=== PATIENT | female | born 1985 | race Caucasian/White ===

== ENCOUNTER 2022-10-19 20:35 | Emergency (ER) | payer MEDICARE, MEDICAID, SELFPAY ==
[2022-10-19 20:41] VITALS: BP 131/65; PULSE 83; RESP 18; TEMP 36.9; O2SAT 97; BMI 31.2
[2022-10-19 21:33] LABS: INR 1.5 (0.9-1.3); Prothrombin Time 16.8 SECONDS (10.1-12.7)
[2022-10-19 21:35] LABS: Ammonia (NH3) 33 umol/L (9-30); PTT Partial Thromboplastin Tim 23 SECONDS (26-36)
[2022-10-19 21:38] LABS: Alanine Aminotransferase 71 IU/L (<35); Albumin 2.8 g/dL (3.5-5.0); Albumin Globulin Ratio 0.8 (1.0-2.8); Alkaline Phosphatase 450 U/L (38-126); Aspartate Aminotransferase 127 IU/L (14-36); BUN Creatinine Ratio 16.7 (6-22); Bilirubin Total 3.9 mg/dL (0.2-1.3); Blood Urea Nitrogen 7 mg/dL (7-17); Calcium 7.5 mg/dL (8.4-10.2); Carbon Dioxide 26 mmol/L (22-32); Chloride 104 mmol/L (98-107); Estimated Glomerular Filt Rate > 60 mL/min (>60); Globulin 3.7 g/dL (1.7-4.1); Glucose 92 mg/dL (70-100); HEMOLYSIS 38 (0-50); Lipase 61 U/L (23-300); Potassium 3.3 mmol/L (3.4-5.1); Sodium 134 mmol/L (137-145); Total Protein 6.5 g/dL (6.3-8.2)
[2022-10-19 21:41] LABS: Basophils Absolute Auto 0 /uL (0-100); Basophils Percent Auto 1.2 % (0-2); Eosinophils Absolute Auto 100 /uL (0-450); Eosinophils Percent Auto 2.2 % (2-4); Hematocrit 30.3 % (36-46); Hemoglobin 10.4 g/dL (12.0-16.0); Lymphocytes Absolute Auto 400 /uL (1100-4500); Lymphocytes Percent Auto 10.8 % (25-40); Mean Corpuscular HGB Conc 34.4 % (30-36); Mean Corpuscular Hemoglobin 29.6 PG (26-34); Mean Corpuscular Volume 86.1 fL (80-100); Monocytes Absolute Auto 300 /uL (0-900); Neutrophils Absolute Auto 3100 /uL (1500-7000); Neutrophils Percent Auto 78.8 % (50-75); Red Blood Cell Count 3.52 X10^6/uL (4.0-5.2); Red Cell Distribution Width 17.5 % (11.6-14.8)
[2022-10-19 21:42] LABS: Add Manual Diff / Slide Review SLIDE REVIEW
--- NOTE | 2022-10-19 21:58 | DI.RAD.S_ITS ---
PROCEDURE: XR CHEST 1V INDICATIONS: sob, ascites. TECHNIQUE: One view of the chest was acquired. COMPARISON: None. FINDINGS: Surgical changes and devices: None. Lungs and pleura: Submaximal inspiration with vascular crowding. No gross infiltrates. Mediastinum: Mediastinal contours appear normal. Heart size is normal. Bones and chest wall: No suspicious bony lesions. Overlying soft tissues appear unremarkable. IMPRESSION: Submaximal inspiration with vascular crowding. No gross infiltrates. Dictated by: Carlos Hall M.D. on 10/19/2022 at 22:17 Approved by: Carlos Hall M.D. on 10/19/2022 at 22:18
[2022-10-19 22:05] LABS: Platelet Count 42 X10^3/uL (150-400)
[2022-10-19 22:06] LABS: Platelet Estimate Decreased on smear; RBC Morphology Normal Morphology
--- NOTE | 2022-10-19 22:56 | ED_ITS ---
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 Patient presents with complaint of significant ascites. Patient describes quite a bit of discomfort and swelling that is even causing an inguinal hernia to be swollen. Patient states that her last paracentesis was around the 28 of September. Patient states belly has been come increasing distended over time. She denies fevers or chills. She is felt achy. She describes it pressing up on her chest and making it hard to breathe. She states she is had nausea. She does describe occasional vomiting. She states there has been no black or bright red blood in her emesis. She describes diarrhea regularly she states this is secondary to her lactulose which she takes regularly. No melena or hematochezia. Patient states even her vaginal area feels swollen from the cirrhosis. And she states her legs have been persistently swollen and occasionally leaking on and off. She states the leaking is a new or issue but not brand new. Patient states she is had several paracentesis in the past and is supposed to be scheduled for regular paracentesis but has not been able to establish that yet. Dr. 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 Amaro. Patient states Dr. SALAZAR is her primary care out of [place]. She states she lives in [place]. She is establishing at [facility] and was seen there prior but did go to [place] for some of her procedures when her gastroenterology/hepatology physician moved to that area. She states she is on Suboxone now she states she has been abstinent from alcohol. She is in process of going through the steps to get on the transplant list. She states Vicodin makes her feel itchy and she has adverse reaction to Compazine. Denies tobacco, alcohol or illicit. Related Data Previous Rx's Medication Instructions Recorded furosemide 40 mg tablet (Lasix) 80 mg PO QAM #60 tabs 10/20/22 spironolactone 100 mg tablet 200 mg PO DAILY #60 tabs 10/20/22 Allergies Allergy/AdvReac Type Severity Reaction Status Date / Time prochlorperazine Allergy Hypertensio Verified 10/19/22 20:41 [From Compazine] n adhesive tape AdvReac Rash Verified 10/19/22 20:41 Review of Systems Review of Systems ROS Unobtainable: All systems reviewed & are unremarkable except as noted in HPI and below Patient History Social History Smoking Status: Never smoker Smoking Status: Never smoker Substance Use Type: does not use Exam Narrative Exam Narrative: GENERAL: Alert and oriented x three, in female in moderate distress. HEENT: Head normocephalic, atraumatic, EOMI, pupils reactive, face symmetric, moist mucous membranes NECK: Supple, full range of motion CARDIOVASCULAR: Regular rate and rhythm without murmurs, rubs or gallops. RESPIRATORY: Breath sounds equal bilaterally, no wheezes rales or rhonchi. ABDOMEN: Soft, nontender but very distended. Positive fluid wave. Normoactive bowel sounds all 4 quadrants. No guarding or rebound, rigidity, no mass, gregg ent does have some fullness in the left inguinal area but is easily reducible. : No CVA tenderness EXTREMITIES: Normal range of motion, no clubbing. Bilateral lower extremity edema. Neurovascularly intact NEUROLOGICAL: Cranial nerves II through XII grossly intact. Moving all extremities SKIN: Warm, dry, no petechiae, no rashes or lesions. Initial Vital Signs Initial Vital Signs: Vital Signs Temperature 98.4 F 10/19/22 20:41 Pulse Rate 83 10/19/22 20:41 Respiratory Rate 18 10/19/22 20:41 Blood Pressure 131/65 10/19/22 20:41 Pulse Oximetry 97 10/19/22 20:41 Oxygen Delivery Method Room Air 10/19/22 20:41 Procedures Paracentesis Time Out Performed: Yes Indication: Ascites Procedure: therapeutic paracentesis Local Anesthetic: lidocaine 2% Amount of anesthesia used (mL): 5 Preparation: sterile prep and drape and Blade used to make perlita in skin Fluid: clear and sent to lab for analysis Post Procedure Exam: awake, alert, normal BP (BP 107 systolic.), normal HR and normal SpO2 Patient Tolerated Procedure: Well and No complications (Patient was given albumin s/p pareacentesis. ) Course Orders Ordered: ED Orders 10/19/22 20:50 Consult to LANDSCAPE ARCHITECTURE PROFESSOR - Type Inspector Stat 10/19/22 20:54 EKG-12 Lead Stat 10/19/22 21:15 Ammonia (NH3) Stat Comprehensive Metabolic Panel Stat Lipase Stat PT [Prothrombin Time INR] Stat PTT Partial Thromboplastin Jenaro Stat Test Serum,Qual Stat 10/19/22 21:30 Complete Blood Count AUTO DIFF Stat 10/19/22 21:58 Chest [XR chest 1V] Stat 10/19/22 23:14 US abdomen limited Stat 10/20/22 00:22 Body Fluid Culture Stat Cell Count w Diff Body Fluid Stat Miscellaneous to [facility] Stat Miscellaneous to [facility] Stat Discontinued Medications Hydromorphone HCl (Hydromorphone 1 Mg Inj) 1 mg IV NOW ONE Stop: 10/19/22 23:36 Last Admin: 10/19/22 23:47 Dose: 1 mg Documented By: EBONY Hydromorphone HCl (Hydromorphone 1 Mg Inj) 1 mg IV NOW ONE Stop: 10/20/22 01:03 Hydromorphone HCl (Hydromorphone 0.5 Mg Inj) 1 mg IV NOW ONE Stop: 10/20/22 01:14 Last Admin: 10/20/22 01:21 Dose: 1 mg Documented By: EBONY Hydromorphone HCl (Hydromorphone 0.5 Mg Inj) 0.5 mg IV NOW ONE Stop: 10/20/22 03:56 Last Admin: 10/20/22 04:03 Dose: 0.5 mg Albumin Human (Albuminar) 50 gm in 200 mls @ 60 mls/hr IV NOW ONE Stop: 10/20/22 02:40 Last Admin: 10/20/22 00:52 Dose: 60 mls/hr Documented By: JUAN CARLOS Lidocaine HCl (Lidocaine 2% Inj Sdv 5ml) 5 ml INJ INTRA-OP ONE Stop: 10/19/22 23:47 Last Admin: 10/20/22 01:21 Dose: 5 ml Documented By: EBONY Ondansetron HCl (Ondansetron 4 Mg Odt) 4 mg PO NOW PRN PRN Reason: Nausea And Vomiting Ondansetron HCl (Ondansetron 4 Mg/2 Ml Inj) 4 mg IV NOW PRN PRN Reason: Nausea And Vomiting Ondansetron HCl (Ondansetron 4 Mg/2 Ml Inj) 4 mg IV NOW ONE Stop: 10/19/22 23:36 Last Admin: 10/19/22 23:47 Dose: 4 mg Documented By: EBONY Vital Signs Vital signs: Vital Signs - 8 hr 10/19/22 23:06 10/19/22 23:06 10/19/22 23:30 Temperature Pulse Rate 83 Blood Pressure 103/60 111/63 Pulse Oximetry 99 10/19/22 23:30 10/20/22 00:00 10/20/22 00:00 Temperature Pulse Rate 83 81 Blood Pressure 116/58 L Pulse Oximetry 98 95 10/20/22 00:09 10/20/22 00:09 10/20/22 00:10 Temperature Pulse Rate 78 79 Blood Pressure 101/56 L Pulse Oximetry 96 96 10/20/22 00:10 10/20/22 00:20 10/20/22 00:20 Temperature Pulse Rate 78 Blood Pressure 107/57 L 104/58 L Pulse Oximetry 97 10/20/22 00:30 10/20/22 00:30 10/20/22 00:40 Temperature Pulse Rate 80 Blood Pressure 107/58 L 102/53 L Pulse Oximetry 96 10/20/22 00:40 10/20/22 00:50 10/20/22 00:50 Temperature Pulse Rate 78 77 Blood Pressure 105/56 L Pulse Oximetry 94 95 10/20/22 01:00 10/20/22 01:00 10/20/22 04:03 Temperature 97.3 F L Pulse Rate 78 Blood Pressure 100/52 L Pulse Oximetry 97 10/20/22 01:10 10/20/22 01:10 10/20/22 01:20 Temperature Pulse Rate 74 Blood Pressure 95/50 L 93/49 L Pulse Oximetry 96 10/20/22 01:20 10/20/22 01:30 10/20/22 01:30 Temperature Pulse Rate 78 77 Blood Pressure 92/46 L Pulse Oximetry 97 94 10/20/22 01:40 10/20/22 01:40 10/20/22 01:50 Temperature Pulse Rate 78 Blood Pressure 95/52 L 97/54 L Pulse Oximetry 93 10/20/22 01:50 10/20/22 02:00 10/20/22 02:00 Temperature Pulse Rate 79 79 Blood Pressure 91/46 L Pulse Oximetry 93 94 10/20/22 02:30 10/20/22 02:30 10/20/22 03:00 Temperature Pulse Rate 82 80 Blood Pressure 90/50 L Pulse Oximetry 97 95 10/20/22 03:30 10/20/22 03:31 10/20/22 03:31 Temperature Pulse Rate 81 83 Blood Pressure 98/50 L Pulse Oximetry 96 98 10/20/22 04:00 10/20/22 04:00 Temperature 98.5 F Pulse Rate 79 Blood Pressure 92/53 L Pulse Oximetry 96 MDM - Abdominal Pain Lab Data 10/19/22 21:30 10/19/22 21:15 Labs: Lab Results 10/19/22 10/19/22 10/19/22 Range/Units 21:15 21:15 21:15 WBC (4.5-11.0) X10^3/uL RBC (4.0-5.2) X10^6/uL Hgb (12.0-16.0) g/dL Hct (36-46) % MCV (80-100) fL MCH (26-34) PG MCHC (30-36) % RDW (11.6-14.8) % Plt Count (150-400) X10^3/uL Neut % (Auto) (50-75) % Lymph % (Auto) (25-40) % [place] % (Auto) (3-14) % Eos % (Auto) (2-4) % Baso % (Auto) (0-2) % Neut # (Auto) (5787-2612) /uL Lymph # (Auto) (3977-3888) /uL [place] # (Auto) (0-900) /uL Eos # (Auto) (0-450) /uL Baso # (Auto) (0-100) /uL Platelet Estimate RBC Morphology PT 16.8 H (10.1-12.7) SECONDS INR 1.5 H (0.9-1.3) APTT 23 L (26-36) SECONDS Sodium 134 L (137-145) mmol/L Potassium 3.3 L (3.4-5.1) mmol/L Chloride 104 (98-107) mmol/L Carbon Dioxide 26 (22-32) mmol/L BUN 7 (7-17) mg/dL Creatinine 0.42 L (0.52-1.04) mg/dL Estimated GFR > 60 (>60) mL/min BUN/Creatinine Ratio 16.7 (6-22) Glucose 92 (70-100) mg/dL Calcium 7.5 L (8.4-10.2) mg/dL Total Bilirubin 3.9 H (0.2-1.3) mg/dL AST 127 H (14-36) IU/L ALT 71 H (<35) IU/L Alkaline Phosphatase 450 H (38-126) U/L Ammonia 33 H (9-30) umol/L Total Protein 6.5 (6.3-8.2) g/dL Albumin 2.8 L (3.5-5.0) g/dL Globulin 3.7 (1.7-4.1) g/dL Albumin/Globulin Ratio 0.8 L (1.0-2.8) Lipase 61 (23-300) U/L Serum , Qual (Negative) Fluid Color Fluid Appearance Fluid RBC /uL Fld Tot Nucleated Cell /uL Fluid Polynuclear WBCs % Fluid Mononuclear WBCs % Fluid Eosinophils Fluid Other Cells % Body Fluid Clot 10/19/22 10/19/22 10/20/22 Range/Units 21:15 21:30 00:22 WBC 4.0 L (4.5-11.0) X10^3/uL RBC 3.52 L (4.0-5.2) X10^6/uL Hgb 10.4 L (12.0-16.0) g/dL Hct 30.3 L (36-46) % MCV 86.1 (80-100) fL MCH 29.6 (26-34) PG MCHC 34.4 (30-36) % RDW 17.5 H (11.6-14.8) % Plt Count 42 L (150-400) X10^3/uL Neut % (Auto) 78.8 H (50-75) % Lymph % (Auto) 10.8 L (25-40) % [place] % (Auto) 7.0 (3-14) % Eos % (Auto) 2.2 (2-4) % Baso % (Auto) 1.2 (0-2) % Neut # (Auto) 3100 (7656-5557) /uL Lymph # (Auto) 400 L (0355-9451) /uL [place] # (Auto) 300 (0-900) /uL Eos # (Auto) 100 (0-450) /uL Baso # (Auto) 0 (0-100) /uL Platelet Estimate Decreased on smear RBC Morphology Normal morphology PT (10.1-12.7) SECONDS INR (0.9-1.3) APTT (26-36) SECONDS Sodium (137-145) mmol/L Potassium (3.4-5.1) mmol/L Chloride (98-107) mmol/L Carbon Dioxide (22-32) mmol/L BUN (7-17) mg/dL Creatinine (0.52-1.04) mg/dL Estimated GFR (>60) mL/min BUN/Creatinine Ratio (6-22) Glucose (70-100) mg/dL Calcium (8.4-10.2) mg/dL Total Bilirubin (0.2-1.3) mg/dL AST (14-36) IU/L ALT (<35) IU/L Alkaline Phosphatase (38-126) U/L Ammonia (9-30) umol/L Total Protein (6.3-8.2) g/dL Albumin (3.5-5.0) g/dL Globulin (1.7-4.1) g/dL Albumin/Globulin Ratio (1.0-2.8) Lipase (23-300) U/L Serum , Qual Negative (Negative) Fluid Color Yellow Fluid Appearance Clear Fluid RBC 570 /uL Fld Tot Nucleated Cell 89 /uL Fluid Polynuclear WBCs 82 % Fluid Mononuclear WBCs 1 % Fluid Eosinophils Not Reportable Fluid Other Cells 17 % Body Fluid Clot No clots present Imaging Data Chest x-ray: Radiologist's Impression: [address] [address] XRay Report Signed Patient: Bernie Granados MR#: [id number] : 1985 Acct:[id number] Age/Sex: 37 / F Date of Service: 10/19/22 Loc: ED Accession Number: [id number] ?? Procedure: XR chest 1V Ordering Provider: Desire Alegre D.O. PROCEDURE:? XR CHEST 1V ? INDICATIONS:? sob, ascites. ? TECHNIQUE:? One view of the chest was acquired.? ? COMPARISON:? None. ? FINDINGS:? ? Surgical changes and devices:? None.? ? Lungs and pleura:? Submaximal inspiration with vascular crowding.? No gross infiltrates. ? Mediastinum:? Mediastinal contours appear normal.? Heart size is normal.? ? Bones and chest wall:? No suspicious bony lesions.? Overlying soft tissues appear unremarkable.? ? IMPRESSION:? Submaximal inspiration with vascular crowding.? No gross infiltrates. ? ? Dictated by: Carlos Hall M.D. on 10/19/2022 at 22:17 ? ? Approved by: Carlos Hall M.D. on 10/19/2022 at 22:18?? US - abdomen: Radiologist's Impression: [address] [address] Ultrasound Report Signed Patient: Bernie Granados MR#: [id number] : 1985 Acct:[id number] Age/Sex: 37 / F Date of Service: 10/19/22 Loc: ED Accession Number: [id number] ?? Procedure: US abdomen limited Ordering Provider: Desire Alegre D.O. PROCEDURE: US ABDOMEN LIMITED ? INDICATIONS:? LULY SKIN FOR PARACENTESIS ? TECHNIQUE:? Real-time focused scanning was performed of the abdomen, with image documentation.? ? COMPARISON:? None. ? FINDINGS:? There is adequate fluid in the right lower quadrant for paracentesis.? The skin was marked for an appropriate spot to attempt paracentesis. ? IMPRESSION:? Skin marked for paracentesis in the right lower quadrant.? Adequate fluid present. ? ? Dictated by: Carlos Hall M.D. on 10/20/2022 at 0:03 ? ? Approved by: Carlos Hall M.D. on 10/20/2022 at 0:03?? ECG Data Attestation: I personally reviewed and interpreted this ECG as follows: Interpretation: Sinus rhythm rate 83 MO 162 QRS of [address] elevation depression noted. MDM Narrative Medical decision making narrative: This is a 37-year-old female with history of biliary atresia status post Kasai procedure in 1986 who then developed cirrhosis with chronic liver failure and has a history of alcohol abuse but currently in remission. Patient's labs in comparison to records obtained actually appear fairly stable her platelets are 42 she is been persistently in the 40s on least 2 visits that I have available. White count is 4, hemoglobin is 10.4, INR is 1.5. Sodium is 134 with potassium of 3.3 chloride of 104 and CO2 of 26, creatinine 0.42. Calcium 7.5 with a total bili 3.9 was last 3.5, AST of 127 ALT of 71 and alk-phos of 450 with ammonia 33. Serum is negative. Patient did have chest x-ray which does not show any fluid overload or pulmonary edema appreciated. Discussed risks benefits with patient, at our facility cut off the usually 1.5 INR and platelets of 50 butit does appear that patient is typically in the 40s for her platelets and has tolerated paracentesis several times at that level. She does appear typically get albumin afterwards. She states she has had as much as 7 L but procedure notes appeared to be 4-5 L on her past 2 visits. After long discussion about risks versus benefits patient elects to continue she does look quite uncomfortable and very very distended and I think she would get some relief. Patient has quite a bit of discomfort but I suspect this is secondary to her s ignificant distention but cell count was obtained as well as culture sent. Ascitic albumin, protein glucose are send out and not available in house. Cell count today here shows yellow, clear fluid 570 RBCs, total nucleated cells or 89 with polyarticular WBCs 82, 1 mononucleosis making SBP unlikely. Patient received albumin after paracentesis. Patient had some very mild ooze, pressure bandage applied. Patient wishes to return home and does not wish to stay and wait for hepatology to callback. Reached out to hepatology at [facility] there was delay with callback from hepatology. Dr. Toure, reviewed patient's labs he has labs from 3 weeks ago and states today's labs appear stable. He agrees with plan for diuresis with 5 L discussed he would give albumin. Recommends increasing her Lasix from 40 mg to 80 mg daily and spironolactone from 100 mg to 200 mg daily. They would like to see her sooner rather than later in his she does not have referral placed to return back to Dr. Rothman until be seen by their group. He does note that if the increase in medications with her Lasix and spironolactone are not helpful she may need some additional interventions. Discussed these with patient and recurrent day. She has recently filled her medication but will need an additional script. Discharge Plan Departure Patient Disposition: Home Clinical Impression: Chronic liver failure, Abdominal ascites Activity Restrictions/Additional Instructions: Follow up with your hepatology team, please call for follow-up with Dr. Faye. There is a culture pending for your peritoneal fluid this takes several days to result. If positive we would contact you. I would recommend getting set up for regular scheduled paracentesis. Your primary care physician may also be able to set this up for you. Increase your Lasix from 40 mg (1 tablet) once daily to 80 mg (2 tablets) daily. Increase your spironolactone from 100 mg daily to 200 mg (2 tablets) daily Prescription sent to [facility] in [facility] on [address] Please return for worsening belly, fevers, new drainage, shortness of breath, passing out throwing up black or blood or having black or bloody stools or other new or concerning changes. Prescriptions: New furosemide [Lasix] 40 mg tablet 80 mg PO QAM Qty: 60 0RF spironolactone 100 mg tablet 200 mg PO DAILY Qty: 60 0RF Referrals: Brain Rothman MD [Non-Staff] - Stand Alone Forms: Patient Portal/API
[2022-10-19 23:06] VITALS: BP 103/60; PULSE 83; O2SAT 99
--- NOTE | 2022-10-19 23:14 | DI.US.S_ITS ---
PROCEDURE: US ABDOMEN LIMITED INDICATIONS: LULY SKIN FOR PARACENTESIS TECHNIQUE: Real-time focused scanning was performed of the abdomen, with image documentation. COMPARISON: None. FINDINGS: There is adequate fluid in the right lower quadrant for paracentesis. The skin was marked for an appropriate spot to attempt paracentesis. IMPRESSION: Skin marked for paracentesis in the right lower quadrant. Adequate fluid present. Dictated by: Carlos Hall M.D. on 10/20/2022 at 0:03 Approved by: Carlos Hall M.D. on 10/20/2022 at 0:03
[2022-10-19 23:28] LABS: Pregnancy Test Serum,Qual Negative (Negative)
[2022-10-19 23:30] VITALS: BP 111/63; PULSE 83; O2SAT 98
[2022-10-19] MEDS: ONDANSETRON 4 MG/2 ML INJ IV (23:47)
[2022-10-19] MEDS: HYDROMORPHONE 1 MG INJ IV (23:47)
[2022-10-20] VITALS (20 sets, daily range): BP systolic 90–116; BP diastolic 46–58; PULSE 74–83; TEMP 36.3–36.9; O2SAT 93–98
[2022-10-20] MEDS: ALBUMIN HUMAN 50 GM/200 ML VIAL IV (00:52)
[2022-10-20 01:04] LABS: Body Fluid Tot Nucleated Cells 89 /uL
[2022-10-20 01:05] LABS: Body Fluid Red Blood Cells 570 /uL
[2022-10-20] MEDS: HYDROMORPHONE 0.5 MG INJ 1 MG IV (01:21)
[2022-10-20] MEDS: LIDOCAINE 2% INJ SDV 5ML 5 ML INJ (01:21)
[2022-10-20 01:32] LABS: Body Fluid Appearance CLEAR; Body Fluid Color YELLOW
[2022-10-20 01:33] LABS: Body Fluid Clotted? NO CLOTS PRESENT
[2022-10-20 01:41] LABS: Mononuclear WBC Body Fluid 1 %; Other Cells Body Fluid 17 %; Polynuclear WBC Body Fluid 82 %
[2022-10-20] MEDS: HYDROMORPHONE 0.5 MG INJ IV (04:03)
== END 2022-10-20 04:23 | disposition home or self-care (01) ==
PROVIDERS: Emergency Provider Emergency Medicine
DX: K72.10 Chronic hepatic failure without coma (principal); R18.8 Other ascites; R06.02 Shortness of breath; R10.9 Unspecified abdominal pain
CPT/HCPCS: 36415; 49082; 71045; 76705; 80053; 82140; 83690; 84703; 85025; 85610; 85730; 87070; 87075; 87205; 89051; 93005; 96365; 96366; 96375; 96376; 99284; J1170; J2405; P9041